=== PATIENT | female | born 1980 | race Hispanic/Latino ===

== ENCOUNTER 2016-08-28 08:07 | Outpatient (CLI) | payer BC | END 2016-08-28 20:46 | disposition home or self-care (01) | LOC: MAMMO 08:07 | DX: Z12.31 Encounter for screening mammogram for malignant neoplasm of breast (principal) | CPT/HCPCS: G0202-TC ==

== ENCOUNTER 2017-07-16 12:24 | Outpatient (CLI) | payer BC | END 2017-07-16 19:19 | disposition home or self-care (01) | LOC: CT 12:24 | DX: R10.32 Left lower quadrant pain (principal) ==